=== PATIENT | female | born 1995 | race Caucasian/White ===

== ENCOUNTER → 2020-07-16 15:19 | Outpatient (BNVA) | payer OTHER, SELFPAY | PROVIDERS: PCP Internal Medicine; Visit Provider Advanced Practice Midwife ==

== ENCOUNTER → 2020-07-23 13:34 | Outpatient (BNVA) | payer OTHER, SELFPAY | PROVIDERS: PCP Internal Medicine; Visit Provider Advanced Practice Midwife | DX: Z30.09 Encounter for other general counseling and advice on contraception (principal) | CPT/HCPCS: 99212 ==

== ENCOUNTER 2025-03-19 18:55 | Emergency (ER) | payer OTHER, SELFPAY ==
[2025-03-19 19:02] VITALS: BP 175/103; PULSE 87; RESP 18; TEMP 36.6; O2SAT 99; BMI 17.7
--- NOTE | 2025-03-19 19:10 | ED.GENADULT ---
HPI - General Adult General Chief complaint: Dental/Oral Stated complaint: Dental Pain Time Seen by Provider: 03/19/25 19:28 Source: patient Mode of arrival: ambulatory Limitations: no limitations History of Present Illness ED Provider: DR. Montalvo HPI narrative: 29-year-old female otherwise healthy came in for evaluation of a diffuse dental pain mostly on the lower left side, no facial swelling or edema, no trauma to the face, no ear pain. Related Data Previous Rx's ?Medication ?Instructions ?Recorded norelgestromin 150 mcg-e.estradiol 1 patch transdermal Q7D PRN 07/23/20 35 mcg/24 hr weekly transderm control 3 weeks #3 ea patch (Xulane) epinephrine 0.3 mg/0.3 mL 0.3 mg (0.3 mL) IM Q10M PRN 10/18/21 injection, auto-injector anaphylaxis 30 days #1 ea clindamycin HCl 300 mg capsule 300 mg PO BID #14 caps 03/19/25 (Cleocin HCl) oxycodone 5 mg tablet 5 mg PO BID PRN pain #5 tabs 03/19/25 Allergies Allergy/AdvReac Type Severity Reaction Status Date / Time acetaminophen (From TYLENOL) Allergy Intermediate FACIAL Verified 03/19/25 19:04 SWELLING/NUMBNESS amoxicillin (AMOXICILLIN) Allergy Unknown ANAPHYLAXIS, Verified 03/19/25 19:04 hypotension bee pollen (BEE STINGS) Allergy Unknown ANAPHYLAXIS Verified 03/19/25 19:04 kiwi (KIWI) Allergy Unknown ANAPHYLAXIS Verified 03/19/25 19:04 ondansetron (ONDANSETRON) Allergy Unknown HIVES Verified 07/23/20 13:39 penicillin V Allergy Unknown hypotension Verified 03/19/25 19:04 Penicillins (PENICILLINS) Allergy Unknown ANAPHYLAXIS Verified 03/19/25 19:04 pseudoephedrine (From Allergy Unknown UNKNOWN Verified 03/19/25 19:04 SUDAFED) tizanidine Allergy Unknown drowsiness Verified 03/19/25 19:04 bees Allergy Unknown anaphylaxis Uncoded 03/19/25 19:04 ENVIROMENTAL Allergy Unknown HIVES/ITCHY/WATERY Uncoded 03/19/25 19:04 EYES kiwi Allergy Unknown Unknown Uncoded 03/19/25 19:04 SEAFOOD Allergy Unknown ANAPHYLAXIS Uncoded 03/19/25 19:04 seafood Allergy Unknown Unknown Uncoded 03/19/25 19:04 SEASONAL ALLERGIES Allergy Unknown HIVES, Uncoded 03/19/25 19:04 WATERY/ITCHY EYES shellfish Allergy Unknown anaphylaxis Uncoded 03/19/25 19:04 Review of Systems Review of Systems: All other systems are reviewed and are negative Constitutional: Reports as per HPI and Reports no additional constitutional complaints Eyes: Reports as per HPI and Reports no additional eye complaints Reports system reviewed and no additional complaints, except as documented Cardiovascular: Reports as per HPI and Reports no additional cardiovascular complaints Respiratory: Reports as per HPI and Reports no additional respiratory complaints Gastrointestinal: Reports as per HPI and Reports no additional gastrointestinal complaints Genitourinary: Reports no additional female genitourinary complaints Musculoskeletal: Reports no additional musculoskeletal complaints Skin/Breast: Reports system reviewed and no additional complaints, except as docu Psychiatric: Reports no additional psychiatric complaints Endocrine: Reports no additional endocrine complaints Hematologic/Lymphatic: Reports no additional hematologic/lymphatic complaints Allergic/Immunologic: Reports no additional allergic/immunologic complaints Reports system reviewed and no additional complaints, except as documented and Reports Abnormal speech present [facility] Past Medical History Medical History Hx of migraines Ovarian cyst Surgical History Hx of section Social History Social History Alcohol intake: current Alcohol intake frequency: holidays/special occasions only Substance Use Type: Marijuana Advance Directives: No Advance Directives Information Provided: No Do you have a plan to hurt others: No Plan Gender identity: Female Physical Exam ED Vital Signs: Vital Signs - 24 hr 03/19/25 19:02 03/19/25 19:11 03/19/25 21:38 Temperature 97.9 F 97.9 F Pulse Rate 87 87 Respiratory Rate 18 18 Blood Pressure 175/103 H 138/79 138/79 Pulse Oximetry 99 Oxygen Delivery Method Room Air BMI result Body Mass Index 17.7 Vital signs have been reviewed and appear to be correct. Blood pressure elevated. Heart rate normal. Respiratory rate normal. Temperature normal. Oxygen saturation normal. Appearance: Alert. Oriented X3. No acute distress. Head: Normal external exam. Normocephalic. Atraumatic. No Dodd signs noted. No raccoon eyes noted. Dental exam: Widespread decay, widespread come swelling and tenderness, no fluctuation or pus collection. Eyes: PERRLA. EOMI. Conjunctiva and sclera normal. Eyelids normal. ENT: TM's Normal. Pharynx normal. Uvula midline. Moist mucous membranes. No trismus noted. No drooling noted. No muffled voice noted. Neck: Normal inspection. Neck supple. FROM. No adenopathy. Thyroid Normal. No meningeal signs. No neck mass noted. CVS: Normal heart rate and rhythm. Heart sound normal. No murmurs noted. Pulses normal throughout. Respiratory: No respiratory distress. Painless inspiration. Breath sounds normal. No wheezes/rales/rhonchi noted. Chest nontender. No accessory muscle usage noted or decreased air movement noted. Abdomen: Soft and nontender. Bowel sounds normal in all 4 quadrants. No distention noted. No organomegaly noted. No visible injury noted. Back: No CVA tenderness. Full range of motion noted. Skin: Skin warm and dry. Normal skin color. Normal skin turgor. No rashes/lesions/lacerations noted. Extremities: No lower extremity edema. Extremities exhibit normal range of motion. Extremities nontender. Neuro: Oriented X 3. Cranial nerve exam: II-XII are grossly intact No motor deficit. No sensory deficit. Reflexes normal. Course Reevaluation(s) Reevaluation #1: Dental infection with gingivitis patient is allergic to penicillins will start on clindamycin. Oxycodone # 5. Follow-up with the dentist. Time: 20:00 Reevaluation #2: Patient received clindamycin and oxycodone feels much better, no allergic reaction to clindamycin. Will discharge. Time: 20:45 Medications Administered Discontinued Medications Generic Name Dose Route Start Last Admin Trade Name Freq PRN Reason Stop Dose Admin Clindamycin HCl 300 mg 03/19/25 19:30 03/19/25 20:08 Clindamycin Hcl 300 Mg Capsule PO 03/19/25 19:31 300 mg ONCE ONE Administration Ketorolac Tromethamine 30 mg 03/19/25 19:10 03/19/25 19:15 Ketorolac Tromethamine 30 Mg/Ml Vial IM 03/19/25 19:11 30 mg ONCE ONE Administration Oxycodone HCl 5 mg 03/19/25 19:28 03/19/25 20:07 Oxycodone Hcl Immed Release 5 Mg Tablet PO 03/19/25 19:29 5 mg ONCE ONE Administration Medical Decision Making Differential Diagnosis Differential Diagnoses: The differential diagnosis associated with the presentation includes (Dental infection, dental abscess, gingivitis, ear pain, TMJ.) Admission/Observation Consideration of admission/observation: Escalation of care including admission/observation considered Discharge Plan Discharge Clinical Impression: Toothache, Dental caries, Gingivitis Patient Disposition: Home, Self-Care Instructions: Gingivitis (ED) Additional Instructions: Call your dentist and make an appointment in 2-3 days. Prescriptions: New clindamycin HCl [Cleocin HCl] 300 mg capsule 300 mg PO BID Qty: 14 0RF oxycodone 5 mg tablet 5 mg PO BID PRN (Reason: pain) Qty: 5 0RF Rx Instructions: Partial Fill upon patient request. No Action epinephrine 0.3 mg/0.3 mL auto-injector 0.3 mg IM Q10M PRN (Reason: anaphylaxis) 30 Days Qty: 1 3RF Rx Instructions: for 2 doses Xulane 150-35 mcg/24 hr patch weekly 1 patch transdermal Q7D PRN (Reason: control) 21 Days Qty: 3 3RF Referrals: Ursula Clements MD [Primary Care Provider, Internal Medicine] Interventions: ED Discharge Assessment Last Done: 03/19/25 21:38 Discharge Date/Time: 03/19/25 21:39 Print Language: Luxembourgish
[2025-03-19 19:11] VITALS: BP 138/79
[2025-03-19] MEDS: oxyCODONE HCl Immed Release 5 MG TABLET PO (20:07)
[2025-03-19 21:38] VITALS: BP 138/79; PULSE 87; RESP 18; TEMP 36.6
--- OUTSIDE RECORDS SUMMARY | 2025-03-19 22:25 | XMS_ITS | Clinical Summary ---
Author Organization [employer] [facility] Address [address] [place] [address] Care Team Providers Care Bat Boy/Girl Name Role Phone Unavailable Primary Care Provider Unavailabl e Encounters Date Type Department Care Team Description 02/03/2025 Population Health Risk Score [facility] Department [address] [facility] [address] [place] [id number] Provider, Population Health Generic from Last 3 Months Social History Tobacco Use Types Packs/Day Years Used Date Smoking Tobacco: Never Assessed Comments Unknown Sex and Gender Information Value Date Recorded Sex Assigned at Not on file Legal Sex Female 2:07 AM EDT Gender Identity Not on file Sexual Orientation Not on file Plan of Treatment Health Maintenance Due Date Last Done Comments Depression Screening 1995 HIV Screening 1995 SDOH Screening 1995 Disability Screening 1995 Alcohol/Substance Use Screening 2007 Tobacco Screening 2007 Family Planning (PISQ) 09/24/2010 HPV Vaccines (1 - 3-dose series) 09/24/2010 Hepatitis C Screening 09/24/2013 DTaP/Tdap/Td Vaccines (1 - Tdap) 09/24/2014 Hepatitis B Vaccines (1 of 3 - 19+ 3-dose series) 09/24/2014 Pap Smear 09/24/2016 COVID-19 Vaccine (1 - 2024-2 6 season) 2024 Influenza Vaccine (#1) 2024 Zoster Vaccines (1 of 2) 09/24/2045 RSV Patients and Pa tients Aged 60 years or older (1 - 1-dose 75+ series) 09/24/2070 HIB Vaccines Aged Out No longer eligi ble based on patient's age to complete this topic Hepatitis A Vaccines Aged Out No long er eligible based on patient's age to complete this topic IPV Vaccines Aged Out No longer eligi ble based on patient's age to complete this topic Meningococcal B Vaccine Aged Out No l onger eligible based on patient's age to complete this topic Meningococcal Vaccine Aged Out No sheridan zeke eligible based on patient's age to complete this topic Pneumococcal Vaccine: Pediat rics (0 to 5 Years) and At-Risk Patients (6 to 49) Years Aged Out No longer eligible b ased on patient's age to complete this topic RSV under 20 months Aged Out No longe r eligible based on patient's age to complete this topic Rotavirus Vaccines Aged Out No longer eligible based on patient's age to complete this topic
== END 2025-03-19 21:39 | disposition home or self-care (01) ==
PROVIDERS: Emergency Provider Emergency Medicine; PCP Internal Medicine
DX: K08.89 Other specified disorders of teeth and supporting structures (principal); K02.9 Dental caries, unspecified; K05.10 Chronic gingivitis, plaque induced
CPT/HCPCS: 99283; J1885

== ENCOUNTER 2025-04-14 22:07 | Emergency (ER) | payer SELFPAY ==
[2025-04-14 22:40] VITALS: BP 158/89; PULSE 90; RESP 18; TEMP 36.7; O2SAT 99; BMI 18.0
--- NOTE | 2025-04-14 22:53 | ED.GENADULT ---
HPI - General Adult General Chief complaint: Fall Stated complaint: fell at work and is Time Seen by Provider: 04/15/25 02:12 Related Data Previous Rx's ?Medication ?Instructions ?Recorded norelgestromin 150 mcg-e.estradiol 1 patch transdermal Q7D PRN 07/23/20 35 mcg/24 hr weekly transderm control 3 weeks #3 ea patch (Xulane) epinephrine 0.3 mg/0.3 mL 0.3 mg (0.3 mL) IM Q10M PRN 10/18/21 injection, auto-injector anaphylaxis 30 days #1 ea clindamycin HCl 300 mg capsule 300 mg PO BID #14 caps 03/19/25 (Cleocin HCl) oxycodone 5 mg tablet 5 mg PO BID PRN pain #5 tabs 03/19/25 Allergies Allergy/AdvReac Type Severity Reaction Status Date / Time acetaminophen (From TYLENOL) Allergy Intermediate FACIAL Verified 04/14/25 22:43 SWELLING/NUMBNESS amoxicillin (AMOXICILLIN) Allergy Unknown ANAPHYLAXIS, Verified 04/14/25 22:43 hypotension bee pollen (BEE STINGS) Allergy Unknown ANAPHYLAXIS Verified 04/14/25 22:43 kiwi (KIWI) Allergy Unknown ANAPHYLAXIS Verified 04/14/25 22:43 ondansetron (ONDANSETRON) Allergy Unknown HIVES Verified 04/14/25 22:43 penicillin V Allergy Unknown hypotension Verified 04/14/25 22:43 Penicillins (PENICILLINS) Allergy Unknown ANAPHYLAXIS Verified 04/14/25 22:43 pseudoephedrine (From Allergy Unknown UNKNOWN Verified 04/14/25 22:43 SUDAFED) tizanidine Allergy Unknown drowsiness Verified 04/14/25 22:43 bees Allergy Unknown anaphylaxis Uncoded 03/19/25 19:04 ENVIROMENTAL Allergy Unknown HIVES/ITCHY/WATERY Uncoded 03/19/25 19:04 EYES kiwi Allergy Unknown Unknown Uncoded 03/19/25 19:04 SEAFOOD Allergy Unknown ANAPHYLAXIS Uncoded 03/19/25 19:04 seafood Allergy Unknown Unknown Uncoded 03/19/25 19:04 SEASONAL ALLERGIES Allergy Unknown HIVES, Uncoded 03/19/25 19:04 WATERY/ITCHY EYES shellfish Allergy Unknown anaphylaxis Uncoded 03/19/25 19:04 PMFSH Past Medical History Medical History Hx of migraines Ovarian cyst Surgical History Hx of section Social History Social History Alcohol intake: current Alcohol intake frequency: holidays/special occasions only Substance Use Type: Marijuana Advance Directives: No Advance Directives Information Provided: No Do you have a plan to hurt others: No Plan Gender identity: Female Physical Exam ED Vital Signs: Vital Signs - 24 hr 04/14/25 22:40 Temperature 98.1 F Pulse Rate 90 Respiratory Rate 18 Blood Pressure 158/89 H Pulse Oximetry 99 Oxygen Delivery Method Room Air BMI result Body Mass Index 18.0 Course Course Course Narrative: RME, this is a rapid medical exam performed by Miguel Mccormick please refer to primary provider for complete H&P- 29-year-old female presents for evaluation of a fall. She complains of some lower back pain. She reports that she has 6 or 7 weeks . She reports being hypertensive with her most recent . Plan for heart tones Discharge Plan Discharge Clinical Impression: Fall Patient Disposition: Left W/O Completing Treatment Prescriptions: No Action epinephrine 0.3 mg/0.3 mL auto-injector 0.3 mg IM Q10M PRN (Reason: anaphylaxis) 30 Days Qty: 1 3RF Rx Instructions: for 2 doses clindamycin HCl [Cleocin HCl] 300 mg capsule 300 mg PO BID Qty: 14 0RF oxycodone 5 mg tablet 5 mg PO BID PRN (Reason: pain) Qty: 5 0RF Rx Instructions: Partial Fill upon patient request. Xulane 150-35 mcg/24 hr patch weekly 1 patch transdermal Q7D PRN (Reason: control) 21 Days Qty: 3 3RF Discharge Date/Time: 04/15/25 02:22
--- OUTSIDE RECORDS SUMMARY | 2025-04-15 01:36 | XMS_ITS | Clinical Summary ---
Author Organization [employer] [facility] ity Address [address] [place] [address] Care Team Providers Care Bridge Club Manager Name Role Phone Unavailable Primary Care Provider Unavailabl e Social History Tobacco Use Types Packs/Day Years Used Date Smoking Tobacco: Never Assessed Comments Unknown Sex and Gender Information Value Date Recorded Sex Assigned at Not on file Legal Sex Female 8:41 PM EST Gender Identity Not on file Sexual Orientation Not on file Plan of Treatment Health Maintenance Due Date Last Done Comments DTaP,Tdap,and Td Vaccines (1 - Tdap) 09/24/2014 Hepatitis B Vaccines (1 of 3 - 19+ 3-dose series) 09/24/2014 Cervical Cancer Screening: P ap Smear 09/24/2016 HPV Vaccines (1 - 3-dose SCD M series) 09/24/2022 HIV Screening 05/11/2023 Hepatitis C Screening 05/11/2023 Social Influencers of Health Screening 05/11/2023 Depression Screening 04/16/2024 COVID-19 Vaccine (1 - 2024-2 6 season) 2024 Influenza Vaccine (#1) 2024 RSV Immunization Adult Patie nts (1 - 1-dose 75+ series) 09/24/2070 HIB Vaccines Aged Out No longer eligi ble based on patient's age to complete this topic Hepatitis A Vaccines Aged Out No long er eligible based on patient's age to complete this topic IPV Vaccines Aged Out No longer eligi ble based on patient's age to complete this topic MMR Vaccines Aged Out No longer eligi ble based on patient's age to complete this topic Meningococcal ACWY Vaccine Aged Out N o longer eligible based on patient's age to complete this topic Meningococcal B Vaccine Aged Out No l onger eligible based on patient's age to complete this topic Pneumococcal Vaccine: Pediat rics (0 to 5 Years) and At-Risk Patients (6 to 49 Years) Aged Out No longer eligible b ased on patient's age to complete this topic RSV Immunization Patients Un jomar 20 months Aged Out No longer eligible b ased on patient's age to complete this topic Varicella Vaccines Aged Out No longer eligible based on patient's age to complete this topic
--- OUTSIDE RECORDS SUMMARY | 2025-04-15 01:36 | XMS_ITS | Clinical Summary ---
Author Organization [employer] [facility] Address [address] [place] [address] Care Team Providers Care Operator Engineer Name Role Phone Unavailable Primary Care Provider Unavailabl e Encounters Date Type Department Care Team Description 02/03/2025 Population Health Risk Score [facility] Department [address] [facility] [address] [place] [id number] Provider, Population Health Generic from Last 3 [...]
== END 2025-04-15 02:22 | disposition left against medical advice (07) ==
PROVIDERS: Emergency Provider Emergency Medicine; PCP Internal Medicine
DX: O16.1 Unspecified maternal hypertension, first trimester (principal); Z04.89 Encounter for examination and observation for other specified reasons; Z53.21 Procedure and treatment not carried out due to patient leaving prior to being seen by health care provider
CPT/HCPCS: 99281